=== PATIENT | female | born 1980 | race Caucasian/White ===

== ENCOUNTER 2020-03-28 09:09 | Outpatient (CLI) | payer BC, SELFPAY ==
--- NOTE | ~2020-03-28 | MM_ITS ---
EXAMINATION: MM screening ana BI w katty HISTORY: Screening mammogram TECHNIQUE: Craniocaudal and mediolateral oblique 3-D tomosynthesis images were obtained and synthetic 2-D images were generated. CAD analysis was submitted and interpreted. COMPARISON: 06/04/2016 bilateral diagnostic digital mammogram and complete right breast ultrasound BREAST PARENCHYMAL COMPOSITION: There are scattered areas of fibroglandular density. FINDINGS: There is asymmetry in the posterior mid to upper outer right breast; diagnostic right mammo gram and right breast ultrasound examination are recommended. Otherwise there is no evidence of suspicious mass, calcification, or architectural distortion to sugg est malignancy in either breast. There has been no other suspicious interval change. IMPRESSION: 1. Posterior mid to upper outer right breast asymmetry 2. Diagnostic right mammogram and right breast ultrasound examination are recommended. BI-RADS Category 0: Incomplete: Needs additional imaging evaluation. Reviewed, dictated and finalized at location A. WORKER IMPRESSION: 1. Posterior mid to upper outer right breast asymmetry 2. Diagnostic right mammogram and right breast ultrasound examination are recom mended. BI-RADS Category 0: Incomplete: Needs additional imaging evaluation.
== END 2020-03-28 09:10 | disposition home or self-care (01) ==
LOC: ANHIMG 09:11
PROVIDERS: PCP Internal Medicine; Visit Provider Nurse Practitioner
DX: Z12.31 Encounter for screening mammogram for malignant neoplasm of breast (principal); R92.8 Other abnormal and inconclusive findings on diagnostic imaging of breast
CPT/HCPCS: 77063; 77067

== ENCOUNTER 2020-05-02 12:11 | Outpatient (CLI) | payer BC, SELFPAY ==
--- NOTE | ~2020-05-02 | MM_ITS ---
Corrected Report Added US order to this report. -BJO - EXAMINATION: MM diagnostic mammo unilat RT, US breast RT limited HISTORY: Focal asymmetry of the right breast on screening mammogram TECHNIQUE: Additional 3-D tomosynthesis images of the right breast were performed and synthetic 2-D images were generated. CAD analysis was submitted and interpreted. High resolution limited right breast ultrasound was performed. COMPARISON: 03/28/2020, 06/04/2016 BREAST PARENCHYMAL COMPOSITION: There are scattered areas of fibroglandular density. FINDINGS: MAMMOGRAPHIC FINDINGS: There is persistent focal asymmetry in the posterior third of the outer breast at the 9:00 location 8 cm from the nipple. No suspicious calcification or architectural distortion are identified. ULTRASOUND: There is a 4 mm cyst at the 10:00 location 2 cm from the nipple. A 4 mm cyst is also seen at the 9:00 location 3 cm from the nipple. No definite sonographic correlate is identified for the mammographic finding in question. IMPRESSION: 1. Probably benign right breast focal asymmetry. 2. Recommend 6 month follow-up right diagnostic mammogram and possible ultrasound. BI-RADS category 3, probably benign findings. Reviewed, dictated and finalized at location A. OGRAPHY TECHNICIAN MTDD IMPRESSION: 1. Probably benign right breast focal asymmetry. 2. Recommend 6 month follow-up right diagnostic mammogram and possible ultrasou nd. BI-RADS category 3, probably benign findings.
== END 2020-05-02 12:12 | disposition home or self-care (01) ==
LOC: ANHIMG 12:13
PROVIDERS: PCP Internal Medicine; Visit Provider Obstetrics & Gynecology Gynecology
DX: R92.8 Other abnormal and inconclusive findings on diagnostic imaging of breast (principal)
CPT/HCPCS: 76642; 77065

== ENCOUNTER 2020-06-23 10:56 | Emergency (ER) | payer BC, SELFPAY ==
--- NOTE | 2020-06-23 10:57 | PC.NURSE ---
Pt arrives to ED ambulatory from [facility]. States has been vomiting and has upper abdominal pain and was told she may have appendicitis and to come to the ED. Pt made aware of need to stay npo for triage. Pt also states the last time I was here for this about a year ago, all they did was draw blood, I didn't get any scans or anything . Explained to rule out anything emergent often blood work is done and sometimes scans or ultrasounds are ordered to be more conclusive. Explained that it is at the examining physician's preference.
--- NOTE | 2020-06-23 11:21 | PC.NURSE ---
States medicine received at urgent care is making her feel better and she is no longer vomiting. Skin signs and breathing wnl. Advised of risks including worsening condition, undiagnosed conditions and may result. Verbalized understanding.
== END 2020-06-23 11:21 | disposition left against medical advice (07) ==
LOC: ANHED 11:46
PROVIDERS: PCP Internal Medicine
DX: Z53.21 Procedure and treatment not carried out due to patient leaving prior to being seen by health care provider (principal)
CPT/HCPCS: 99199

== ENCOUNTER → 2020-07-04 13:45 | Outpatient (CLI) | payer BC, SELFPAY ==
--- NOTE | ~2020-07-04 | CT_ITS ---
EXAMINATION: CT abdomen pelvis w con DATE: 07/04/2020 14:18 INDICATION: Epigastric pain TECHNIQUE: Computed tomography (CT) of the abdomen and pelvis was performed with 100 cc Omnipaque 350 intravenous contrast. The dose-length product was 975.78 mGy-cm. Automated exposure control and iter ative reconstruction technique were employed. COMPARISON: None. FINDINGS: Lung bases are unremarkable. Heart size is normal. No pleural or pericardial effusion. No s ignificant vascular abnormality. No lymphadenopathy. The liver, spleen, pancreas, adrenal glands and kidneys are unremarkable. Gallbladder is present. Non obstructive bowel gas pattern. Colonic diverticulosis without evidence for diverticulitis. No free ai r or free fluid. IUD present in the uterus. No acute osseous abnormality. IMPRESSION: 1. No acute abdominal abnormality. Reviewed, dictated and finalized at location A. TING SUPERVISOR
== END ==
PROVIDERS: Visit Provider Clinical Nurse Specialist
DX: R10.84 Generalized abdominal pain (principal)
CPT/HCPCS: 74177; Q9967

== ENCOUNTER → 2020-08-11 01:48 | Outpatient (CLI) | payer BC, SELFPAY ==
[2020-08-11 19:04] LABS: SARS-CoV-2 RNA PCR Negative
== END ==
PROVIDERS: PCP Internal Medicine; Visit Provider Internal Medicine Gastroenterology
DX: Z01.812 Encounter for preprocedural laboratory examination (principal); Z20.822 Contact with and (suspected) exposure to COVID-19
CPT/HCPCS: C9803; U0003; U0005

== ENCOUNTER 2020-08-14 01:55 | Day surgery (SDC) | payer BC, SELFPAY ==
[2020-08-07 09:26] VITALS: BMI 33.3
[2020-08-14 08:09] VITALS: BP 100/63; PULSE 88; RESP 16; TEMP 36.4; O2SAT 98; BMI 34.4
--- NOTE | 2020-08-14 08:18 | WPDANESEPPF ---
Anes - Initial Pre Proc Eval Procedure: Operation Date: 08/14/20 09:00 Proposed Procedures p Colonoscopy - Dane Ortiz MD Date/Time: 08/14/20 08:18 Surgeon: Dane Ortiz MD Pre Op Diagnosis: right lower quadrant pain, loose stools Patient Data Age: 39 Gender: F Height: 5 ft 5 in Weight: 94 kg Last Vital Signs Temp 36.4 C 08/14/20 08:09 Pulse 88 08/14/20 08:09 Resp 16 08/14/20 08:09 BP 100/63 08/14/20 08:09 Pulse Ox 98 08/14/20 08:09 Allergies Allergy/AdvReac Type Severity Reaction Status Date / Time No Known Allergies Allergy Verified 08/14/20 08:07 Home Medications Medication Instructions Recorded Confirmed Type ergocalciferol (vitamin D2) 1,250 50,000 unit PO WEEKLY #8 cap 02/29/20 08/07/20 Rx mcg (50,000 unit) capsule ondansetron 4 mg disintegrating 4 mg PO Q8H PRN #30 tablet 06/26/20 08/07/20 Rx tablet levothyroxine 125 mcg tablet 125 mcg PO DAILY #90 tablet 08/04/20 08/07/20 Rx sod picosulf 10 mg-magnes 3.5 160 ml PO BID #160 ml 08/06/20 Rx gram-citric 12 gram/160 mL oral solution fluticasone propionate 2 spray INTRANASAL DAILY 08/07/20 08/07/20 History levocetirizine 5 mg PO DAILY 08/07/20 08/07/20 History Patient hx anesthesia problems: none Family hx anesthesia problems: none PMFSH Past Medical History Medical History Fibrocystic breast disease Heartburn HPV (human papilloma virus) infection Hypothyroidism Migraine Vitamin D deficiency Family History Family History Mother Patient's mother is in good health Father Acute myocardial infarction Sibling Skin cancer Social History Social History Smoking status: Current some day smoker Tobacco type: cigarettes Second hand tobacco smoke exposure: Yes Additional smoking assessment comments: SMOKES SOCIALLY COUPLE PACKS A MONTH Alcohol intake: current Substance use: never Substance use type: does not use Living arrangements: with family Spiritual care concerns: No Anes - Eval Final PreProcedure Day of Procedure 08/14/20 08:18 Patient weight: obese Heart: regular rate and rhythm Lungs: clear to auscultation Airway: Mallampati scale Neurological: alert and oriented Last oral intake: >/= 8 hours ASA classification: II Emergent: no Anesthetic plan: proceed Anesthesia type and monitoring: general GIVS and standard monitoring Informed Consent: The patient's anesthetic plan and its attendant risks and benefits were discussed with the patient/family/POA. Questions were solicited and answers provided to the satisfaction of the patient/family/POA.
[2020-08-14] MEDS: LACTATED RINGERS 1,000 ML 150 ML IV CONT (08:26)
--- NOTE | 2020-08-14 08:55 | PM.HPGS ---
History of Present Illness History of Present Illness Consent: Risks, benefits, and alternatives have been discussed and questions answered. Patient agrees to proceed with procedure. Chief complaint: right lower quadrant pain, loose stools Narrative: Marsha Jacobs is a 39 year old female With a change in bowel habits accompanied by abdominal pain Review of Systems Review of Systems: All systems reviewed & are unremarkable except as noted in HPI and below PMFSH Past Medical History Medical History Fibrocystic breast disease Heartburn HPV (human papilloma virus) infection Hypothyroidism Migraine Vitamin D deficiency Family History Family History Mother Patient's mother is in good health Father Acute myocardial infarction Sibling Skin cancer Social History Social History Smoking status: Current some day smoker Tobacco type: cigarettes Second hand tobacco smoke exposure: Yes Additional smoking assessment comments: SMOKES SOCIALLY COUPLE PACKS A MONTH Alcohol intake: current Substance use: never Substance use type: does not use Living arrangements: with family Spiritual care concerns: No Meds Home Medications and Allergies Home Medications Medication Instructions Recorded Confirmed Type ergocalciferol (vitamin D2) 1,250 50,000 unit PO WEEKLY #8 cap 02/29/20 08/07/20 Rx mcg (50,000 unit) capsule ondansetron 4 mg disintegrating 4 mg PO Q8H PRN #30 tablet 06/26/20 08/07/20 Rx tablet levothyroxine 125 mcg tablet 125 mcg PO DAILY #90 tablet 08/04/20 08/07/20 Rx sod picosulf 10 mg-magnes 3.5 160 ml PO BID #160 ml 08/06/20 Rx gram-citric 12 gram/160 mL oral solution fluticasone propionate 2 spray INTRANASAL DAILY 08/07/20 08/07/20 History levocetirizine 5 mg PO DAILY 08/07/20 08/07/20 History Allergies Allergy/AdvReac Type Severity Reaction Status Date / Time No Known Allergies Allergy Verified 08/14/20 08:07 Vital Signs Vital Signs - 24 hr 08/14/20 08:09 Temperature 36.4 C Pulse Rate 88 Respiratory Rate 16 Blood Pressure 100/63 Pulse Oximetry 98 Exam Const: General: alert Orientation/consciousness: patient oriented x3 Resp: Auscultation: clear to auscultation bilaterally Cardio: Rhythm: regular rhythm GI: GI Palp: Yes Soft to palpation and No Tenderness to palpation present (GI) Neuro: General: patient oriented x3 Assessment and Plan Assessment and plan (1) Change in bowel habits: Code(s): R19.4 - Change in bowel habit Status: Acute Assessment and Plan: Colonoscopy with possible biopsy or polypectomy or cautery or injection of substances.
[2020-08-14 09:28] VITALS: BP 91/66; PULSE 81; RESP 23; O2SAT 100
[2020-08-14 09:38] VITALS: BP 101/66; PULSE 79; RESP 18; O2SAT 100
[2020-08-14 09:48] VITALS: BP 102/65; PULSE 75; RESP 23; O2SAT 100
== END 2020-08-14 09:59 | disposition home or self-care (01) ==
PROVIDERS: PCP Internal Medicine; Visit Provider Internal Medicine Gastroenterology
PROC: 0DJD8ZZ Inspection of Lower Intestinal Tract, Via Natural or Artificial Opening Endoscopic (ICD-10-PCS; CPT 45378; principal; 2020-08-14 09:00)
DX: R19.4 Change in bowel habit (principal); K57.30 Diverticulosis of large intestine without perforation or abscess without bleeding; D12.3 Benign neoplasm of transverse colon; K63.5 Polyp of colon; E03.9 Hypothyroidism, unspecified; E55.9 Vitamin D deficiency, unspecified; F17.210 Nicotine dependence, cigarettes, uncomplicated; E66.9 Obesity, unspecified; Z68.34 Body mass index [BMI] 34.0-34.9, adult
CPT/HCPCS: 45385; 88305; J2704; J7120

== ENCOUNTER 2020-10-31 11:11 | Outpatient (CLI) | payer BC, SELFPAY ==
--- NOTE | ~2020-10-31 | MMUS_ITS ---
EXAMINATION: MM diagnostic ana RT w katty, US breast RT limited HISTORY: Six-month follow-up for probably benign focal asymmetry of the right breast. TECHNIQUE: Craniocaudal, mediolateral, and mediolateral oblique 3-D tomosynthesis images of the right breast were performed and synthetic 2-D images were generated. CAD analysis was submitted and interp reted. High resolution limited right breast ultrasound was performed. COMPARISON: 05/12/2020, 03/28/2020, 04/03/2017 BREAST PARENCHYMAL COMPOSITION: There are scattered areas of fibroglandular density. FINDINGS: MAMMOGRAPHIC FINDINGS: Focal asymmetry in the posterior third of the upper outer quadrant of the breast is stable. There has been no suspicious interval change. ULTRASOUND: There is no evidence of focal abnormal solid or cystic mass in the vicinity of the mammographic findi ng in question. A 4 mm cyst is noted at the 9:00 location 4 cm from the nipple. IMPRESSION: 1. Stable, probably benign focal asymmetry of the right breast. 2. Recommend 6 month follow-up right diagnostic mammogram and possible ultrasound. BI-RADS category 3, probably benign findings. Reviewed, dictated and finalized at location A. IMPRESSION: 1. Stable, probably benign focal asymmetry of the right breast. 2. Recommend 6 month follow-up right diagnostic mammogram and possible ultrasou nd. BI-RADS category 3, probably benign findings.
== END 2020-10-31 11:12 | disposition home or self-care (01) ==
PROVIDERS: PCP Internal Medicine; Visit Provider Obstetrics & Gynecology Gynecology
DX: R92.8 Other abnormal and inconclusive findings on diagnostic imaging of breast (principal)
CPT/HCPCS: 76642; 77061; 77065; G0279

== ENCOUNTER 2021-05-08 11:26 | Outpatient (CLI) | payer BC, SELFPAY ==
--- NOTE | ~2021-05-08 | MMUS_ITS ---
EXAMINATION: MM diagnostic ana BI w katty, US breast RT limited HISTORY: Follow-up right breast masses TECHNIQUE: Additional 3-D tomosynthesis images of the breasts were performed and synthetic 2-D images were generated. CAD analysis was submitted and interpreted. High resolution Limited right breast ult rasound was performed. COMPARISON: Comparison to multiple prior studies sequentially, with oldest reviewed study dated 06/04. BREAST PARENCHYMAL COMPOSITION: Breast composed of scattered areas of fibroglandular density FINDINGS: MAMMOGRAPHIC FINDINGS: Stable benign-appearing masses in the upper outer quadrant of the right breast posteriorly. The left breast is stable without evidence for malignancy. ULTRASOUND: Limited right breast ultrasound: And 9:00, 4 cm from the nipple there is a 5 mm cyst. No suspicious m asses to suggest malignancy. IMPRESSION: 1. No evidence for malignancy in either breast. Benign findings. 2. Routine yearly screening mammogram and regular clinical breast examination are recommended. BI-RADS Category 2: Benign finding(s). Reviewed, dictated and finalized at location A. IL GREETER IMPRESSION: 1. No evidence for malignancy in either breast. Benign findings. 2. Routine yearly screening mammogram and regular clinical breast examination a re recommended. BI-RADS Category 2: Benign finding(s).
== END 2021-05-08 11:27 | disposition home or self-care (01) ==
PROVIDERS: PCP Internal Medicine; Visit Provider Obstetrics & Gynecology Gynecology
DX: R92.8 Other abnormal and inconclusive findings on diagnostic imaging of breast (principal)
CPT/HCPCS: 76642; 77062; 77066; G0279

== ENCOUNTER 2022-03-17 15:25 | Outpatient (CLI) | payer BC, SELFPAY ==
--- NOTE | ~2022-03-17 | US_ITS ---
EXAMINATION: US pelvic complete w TV DATE: 03/17/2022 16:20 INDICATION: Evaluate IUD Comparison:No prior studies for comparison. TECHNIQUE: Multiple transabdominal and endovaginal sonographic images of the pelvis performed. FINDINGS: The uterus measures 6.8 x 3 x 3.4 cm. The endometrial complex measures 3 mm. There is an IU D in the endometrium. Small amount of fluid in the endometrial complex. The right ovary is not visualized. Left ovary measures 2.2 x 1.3 x 1.6 cm. There is an echogenic focu s in the left ovary measuring 4 mm, likely calcification. There is no free fluid in the pelvis. There are no abnormal masses seen on either side. IMPRESSION: 1. Unremarkable pelvic ultrasound. IUD in expected position. Reviewed, dictated and finalized at location A. OLOGY CT TECHNOLOGIST
== END 2022-03-17 15:26 | disposition home or self-care (01) ==
PROVIDERS: PCP Internal Medicine; Visit Provider Nurse Practitioner
DX: Z30.431 Encounter for routine checking of intrauterine contraceptive device (principal)
CPT/HCPCS: 76830; 76856

== ENCOUNTER 2022-05-28 09:51 | Outpatient (CLI) | payer BC, SELFPAY ==
--- NOTE | ~2022-05-28 | MM_ITS ---
EXAMINATION: MM screening naa BI w katty HISTORY: Screening TECHNIQUE: Craniocaudal and mediolateral oblique 3-D tomosynthesis images were obtained and synthetic 2-D images were generated. CAD analysis was submitted and interpreted. COMPARISON: Comparison to multiple prior studies sequentially, with oldest reviewed study dated 06/04. BREAST PARENCHYMAL COMPOSITION: Breast composed of scattered areas of fibroglandular density FINDINGS: Benign-appearing masses in the upper outer quadrant of the right breast are unchanged. Ther e is no evidence of suspicious mass, calcification, or architectural distortion to suggest malignancy in either breast. There has been no suspicious interval change. IMPRESSION: 1. No mammographic evidence of malignancy. 2. Recommend routine screening mammography in one year. BI-RADS Category 2: Benign finding(s). Reviewed, dictated and finalized at location A. MATIC WASHER MECHANIC
== END 2022-05-28 09:52 | disposition home or self-care (01) ==
PROVIDERS: PCP Internal Medicine; Visit Provider Nurse Practitioner
DX: Z12.31 Encounter for screening mammogram for malignant neoplasm of breast (principal)
CPT/HCPCS: 77063; 77067

== ENCOUNTER 2022-11-27 15:04 | Observation (INO) | payer BC, SELFPAY ==
--- NOTE | ~2022-11-27 | CT_ITS ---
CT of the Abdomen and Pelvis: Indication: Abdominal pain Technique: 2.5 mm axial scans were obtained through the abdomen and pelvis following intravenous adm inistration of 100 cc of Omnipaque 350. Dose reduction technique was used on this scan by utilizing a utomated exposure control and iterative reconstruction technique. The dose-length product (DLP) was 9 07.53 mGy-cm. COMPARISON: 07/04/2020 Findings: Scans through the lung bases are unremarkable. The liver, spleen, pancreas, gallbladder, adrenals and kidneys are within normal limits. No evidence of aortic aneurysm. No lymphadenopathy. No bowel obstruction or bowel wall thickening. Appendix is dilated to 10 mm, with probable appendicul is present. No significant inflammatory changes evident however. No abscess or free air.. Images through the pelvis were performed. Urinary bladder unremarkable. 2 cm right ovarian cyst noted . No ascites. Impression: Mildly dilated appendix with appendicolith present, but no inflammatory change. Findings could possib ly reflect very early acute appendicitis in the appropriate clinical setting. Correlate clinically. Reviewed, dictated and finalized at [facility]. Impression: Mildly dilated appendix with appendicolith present, but no inflammatory change. Findings could possibly reflect very early acute appendicitis in the appropria te clinical setting. Correlate clinically.
[2022-11-27 15:06] VITALS: BP 114/76; PULSE 73; RESP 20; TEMP 36.3; O2SAT 100
[2022-11-27 15:29] LABS: Hematocrit 43.3 % (37.0-47.0); Hemoglobin 14.5 g/dL (12.0-15.0); Mean Corpuscular HGB Conc 33.5 g/dl (32-36); Mean Corpuscular Hemoglobin 30.7 pg (26-34); Mean Corpuscular Volume 91.7 fl (80-100); Mean Platelet Volume 8.9 fl (7.4-10.4); Platelet Count Result 294 k/mm3 (150-375); Red Blood Count 4.72 M/mm3 (4.2-5.4); Red Cell Distribution Width 12.7 % (11.5-14.5); White Blood Count 20.1 K/mm3 (4.5-10.0)
[2022-11-27 15:31] VITALS: BP 114/65; PULSE 71; RESP 15; O2SAT 100
[2022-11-27 15:40] LABS: Alanine Aminotransferase 23 U/L (6-35); Albumin Level 4.3 g/dL (3.5-5.1); Alkaline Phosphatase 77 U/L (38-126); Anion Gap 7 mmol/L (8-16); Aspartate Amino Transferase 26 U/L (14-36); Bilirubin,Total 0.5 mg/dL (0.2-1.3); Blood Urea Nitrogen 15 mg/dL (7-17); Carbon Dioxide 21 mmol/L (22-30); Chloride 107 mmol/L (98-107); Estimated CRCL calculation 88 ml/min; Estimated Glomerular Filt Rate > 60; Glucose 121 mg/dL (65-110); Lipase 112 U/L (23-300); Potassium 3.7 mmol/L (3.4-5.0); Sodium 135 mmol/L (137-145)
[2022-11-27] MEDS: ONDANSETRON INJ 4 MG/2 ML VIAL IV PUSH ×2 (15:41→19:13)
[2022-11-27] MEDS: HYDROmorphone HCL INJ (*CRX) 1 MG/ML SYR 0.5 MG IV PUSH ×2 (15:42→19:16)
--- NOTE | 2022-11-27 15:45 | ED.ABDPAIN ---
HPI - Abdominal Pain General Chief Complaint: Abdominal Pain Stated Complaint: abd pain N/V Time Seen by Provider: 11/27/22 15:13 History of Present Illness HPI narrative: 42-year-old female presented ED for evaluation of epigastric pain with associated nausea and vomiting. Patient reports she had the onset of pain at approximately 10 AM and then had nausea and vomiting at 1 PM. Patient did attempt to take Zofran for nausea control with no significant improvement. Patient does have prior history of gastritis. Patient does drink alcohol and did drink some alcohol recently. Patient denies any prior history of pancreatitis. Patient describes epigastric abdominal pain patient states she is passing stool and passing flatus. Patient denies any blood in her emesis. Related Data Home Medications Medication Instructions Recorded Confirmed fluticasone propionate 50 2 spray intranasal DAILY 08/07/20 07/16/22 mcg/actuation nasal spray,suspension levocetirizine 5 mg tablet 5 mg PO DAILY 08/07/20 07/16/22 Allergies Allergy/AdvReac Type Severity Reaction Status Date / Time No Known Allergies Allergy Verified 11/27/22 15:31 Review of Systems Review of Systems: All systems reviewed & are unremarkable except as noted in HPI and below PMFSH Past Medical History Medical History Fibrocystic breast disease Heartburn HPV (human papilloma virus) infection Hypothyroidism Migraine Vitamin D deficiency Surgical History Surgical History History of placement of ear tubes Third tube placed in left ear 04/2021 Family History Family History (Updated 07/16/22 @ 11:16 by Angie Rojas MA) Mother Patient's mother is in good health Father Acute myocardial infarction Parkinson disease Sibling Skin cancer Social History Social History (Updated 07/16/22 @ 11:19 by Angie Rojas MA) Smoking status: Current some day smoker Tobacco type: cigarettes Second hand tobacco smoke exposure: Yes Additional smoking assessment comments: SMOKES SOCIALLY COUPLE PACKS A MONTH Alcohol intake: current Substance use: never Substance use type: does not use Lack of Transportation: No Lack of Food: Never True Current Housing: I Have Housing Concerned About Future Housing: No Difficulty Paying Gas/Electric Bills: No Difficulty Paying for Meds: No Currently Unemployed: No Education: Associate Degree Difficulty w/ Childcare or Family Care: No Living arrangements: with family Spiritual care concerns: No Exam Narrative: APPEARANCE: Well appearing, no pain, no distress, well-nourished. HEAD: normocephalic, atraumatic. EYES: PERRLA/EOMI, conjunctivae clear. NOSE: Normal no drainage EARS:TMS clear with good light reflex. THROAT: Pharynx clear, no exudate. NECK: Supple. No adenopathy, no masses. RESPIRATORY: Airway patent, respirations nonlabored. Clear to auscultation bilaterally, no rales, rhonchi, wheezing. CARDIOVASCULAR: Regular rate and rhythm without murmurs rubs or gallops. ABDOMINAL: Epigastric tenderness to palpation with mild right lower quadrant tenderness to palpation MUSCULOSKELETAL: Moves all extremities. Strength/ROM intact, No edema, No calf tenderness. NEURO: Alert. Cranial nerves II through XII intact. Grossly intact SKIN: Warm, dry. Normal Color Course Course Emergency Course: 42-year-old female presented ED for evaluation of epigastric pain with associated nausea and vomiting. Patient did require multiple doses of Dilaudid, Zofran and IV Reglan for pain and nausea control. Patient did have a elevated leukocytosis of 20,000. Patient CT showed possible early appendicitis. On reexamination patient reports that her epigastric pain is improved but she does still have tenderness to palpation. Patient did have some mild right lower quadrant tendernes
[2022-11-27] MEDS: BELLADONNA ALK/PHENOB ELIX 10 ML, MAG HYDROX/ALUMINUM HYD/SIMETH 30 ML, LIDOCAINE HCL 2... PO (15:50)
[2022-11-27] MEDS: PANTOPRAZOLE SODIUM IV 40 MG VIAL IV PUSH (15:53)
[2022-11-27 16:07] LABS: Band Neutrophils Percent 2 % (0-6); Lymphocytes Absolute Manual 2.61 K/mm3 (1.1-4.5); Monocytes Percent Manual 8 % (3-9); Neutrophils Absolute Manual 15.87 K/mm3 (1.7-7.2); Neutrophils Percent Manual 77 % (46-73); Platelet Estimate Adequate (Adequate); Schistocytes None Seen (NORMAL); Total Cells Counted 100
[2022-11-27] MEDS: METOCLOPRAMIDE HCL INJ 10 MG/2 ML VIAL IV PUSH (16:52)
[2022-11-27 16:54] VITALS: BP 112/52; PULSE 76; RESP 23; O2SAT 100
--- NOTE | 2022-11-27 17:05 | PC.NURSE ---
Pt to CT scan via stretcher at this time.
[2022-11-27] MEDS: HYDROmorphone HCL INJ (*CRX) 1 MG/ML SYR IV PUSH (17:13)
[2022-11-27 17:42] VITALS: BP 100/69; PULSE 84; RESP 16; O2SAT 98
[2022-11-27] MEDS: SODIUM CHLORIDE 0.9% IV 1,000 ML 999 ML IV CONT (17:49)
[2022-11-27 18:37] LABS: Add Urine Microscopic? YES; Appearance Urine Clear (Clear); Bacteria Urine None Seen /hpf; Bilirubin Urine Negative (Negative); Blood Urine Negative (Negative); Color Urine Yellow (Yellow); Glucose Urine UA Negative (Negative); Hyaline Casts Urine Present /lpf; Ketones Urine 3+ mg/dL (Negative); Leukocyte Esterase Ur Negative LEU/UL (Negative); Nitrate Urine Negative (Negative); Non Pathogenic Casts 0-2; Protein Urine Trace mg/dL (Negative); Specific Grav Ur 1.098 (1.001-1.035); Squamous Epithelial Cell Urine Occasional /hpf (Few); WBC Urine 0-5 /hpf; pH Urine 8.5 (5.0-9.0)
[2022-11-27 18:48] VITALS: BP 128/83; PULSE 75; RESP 18; O2SAT 100
--- NOTE | 2022-11-27 19:00 | ADMGEN ---
This patient, Marsha Jacobs, was admitted to 2 Medical Room 242-01. Patient/family oriented to hospital policies and general routines including ID bracelet, bed and alarms, visiting hours, pain management, procedures, bathroom and other care routines, personal items, smoking policy, room service/diet, and visiting hours. Information on how to activate the Rapid Response Team has been discussed. Patient/Family are encouraged to report perceived risks to care and to ask questions if they do not understand what they are told or what they should do.
[2022-11-27 19:27] VITALS: BP 108/70; PULSE 86; RESP 16; TEMP 36.3; O2SAT 100; BMI 34.7
[2022-11-27] MEDS: PIPERACILLN/TAZ 3.375GM/NS50ML 3.375 GM/50 ML BAG IVPB (21:30)
[2022-11-27] MEDS: SODIUM CHLORIDE 0.9% IV 1,000 ML 125 ML IV CONT (21:30)
[2022-11-28] VITALS (10 sets, daily range): BP systolic 94–105; BP diastolic 53–75; PULSE 76–107; RESP 16–25; TEMP 36.2–36.9; O2SAT 96–100
[2022-11-28] MEDS: SODIUM CHLORIDE 0.9% IV 1,000 ML 125 ML IV CONT (07:00)
--- NOTE | 2022-11-28 08:40 | PM.IMHP ---
H&P: HPI History of Present Illness Date/Time: 11/28/22 08:40 Chief Complaint: Epigastric and right lower quadrant abdominal pain Narrative: This is a 42-year-old woman who presented to the emergency department with mostly epigastric abdominal pain. She had been experiencing pain followed by nausea and vomiting. She states that she has probably vomited about 20 times. She is no longer nauseated and the epigastric pain is somewhat better but she is complaining of pain in her lower abdomen and particularly on the right side. In the emergency department she was noted to have an elevated white blood count and CT showed a dilated appendix with appendicolith but no surrounding inflammation. The patient states she has had 2 or 3 episodes like this in the past but they have improved without needing to be admitted. She denies any changes in bowel habits. She denies any fevers. She was admitted for observation and now that she has been observed over night the pain does appear to be more localized to the right lower quadrant. Review of Systems Review of Systems: All systems reviewed & are unremarkable except as noted in HPI and below Eyes: Eyes: Denies change in vision ENT: Denies hearing loss, Denies neck pain and Denies sore throat Cardiovascular: Cardiovascular: Denies chest pain and Denies dyspnea Respiratory: Respiratory: Denies cough, Denies dyspnea and Denies wheezing Gastrointestinal: Gastrointestinal: Reports as per HPI Genitourinary: Genitourinary: Denies hematuria and Denies dysuria Musculoskeletal: Musculoskeletal: Denies arthralgias, Denies joint swelling and Denies neck pain Allergic/Immunologic: Allergic/Immunologic: Denies wheezing PMFSH Past Medical History Medical History Fibrocystic breast disease Heartburn HPV (human papilloma virus) infection Hypothyroidism Migraine Vitamin D deficiency Surgical History Surgical History History of placement of ear tubes Third tube placed in left ear 04/2021 Family History Family History (Updated 11/27/22 @ 19:29 by Evangelist Burton RN) Mother Patient's mother is in good health Father Acute myocardial infarction Parkinson disease Sibling Skin cancer Sibling Skin cancer Social History Social History (Updated 07/16/22 @ 11:19 by Angie Rojas MA) Smoking packs per day: 0.1 Smoking cigarettes per day: 2.0 Years smoked: 30 Smoking pack-years: 3.00 Smoking status: Current some day smoker Tobacco type: cigarettes Second hand tobacco smoke exposure: Yes Additional smoking assessment comments: SMOKES SOCIALLY COUPLE PACKS A MONTH Alcohol intake: current Drinks per week: 1 Substance use: never Substance use type: does not use Lack of Transportation: No Lack of Food: Never True Current Housing: I Have Housing Concerned About Future Housing: No Difficulty Paying Gas/Electric Bills: No Difficulty Paying for Meds: No Currently Unemployed: No Education: Associate Degree Difficulty w/ Childcare or Family Care: No Living arrangements: with family Spiritual care concerns: Yes Meds Home Medications and Allergies Home Medications Medication Instructions Recorded Confirmed Type fluticasone propionate 50 2 spray intranasal DAILY 08/07/20 11/27/22 History mcg/actuation nasal spray,suspension levocetirizine 5 mg tablet 5 mg PO DAILY 08/07/20 11/27/22 History levothyroxine 125 mcg tablet 125 mcg PO DAILY #90 tabs 07/16/22 11/27/22 Rx ergocalciferol (vitamin D2) 1,250 See Rx Instructions .Route 08/31/22 11/27/22 Rx mcg (50,000 unit) capsule .COMPLEX #12 caps Allergies Allergy/AdvReac Type Severity Reaction Status Date / Time No Known Allergies Allergy Verified 11/27/22 19:26 Vital Signs Vital Signs - 24 hr 11/27/22 15:06 11/27/22 15:31 11/27/22 16:54 Tem
--- NOTE | 2022-11-28 08:46 | WPDHPUPDATE1 ---
History and Physical Update Update Date/Time: 11/28/22 08:46 History and Physical has been reviewed, including an updated exam of the patient. There are NO changes in the patient's condition. Risks, benefits, and alternatives have been discussed and questions answered. Patient agrees to proceed with procedure.
[2022-11-28] MEDS: PIPERACILLN/TAZ 3.375GM/NS50ML 3.375 GM/50 ML BAG IVPB ×2 (09:19→15:18)
--- NOTE | 2022-11-28 09:50 | PC.NURSE ---
To OR per bed , IV right wrist, LAC. Report given to Freddy RAMIREZ.
--- NOTE | 2022-11-28 09:59 | WPDANESEPPF ---
Anes - Initial Pre Proc Eval Procedure: Operation Date: 11/28/22 10:00 Proposed Procedures p Laparoscopic Appendectomy - Tereso Pugh DO Date/Time: 11/28/22 09:59 Surgeon: Tereso Pugh DO Pre Op Diagnosis: Abdominal Pain,Nausea,Vomiting,Leukocytosis Patient Data Age: 42 Gender: F Height: 1.65 m Weight: 94.7 kg Last Vital Signs Temp 36.9 C 11/28/22 04:37 Pulse 76 11/28/22 04:37 Resp 16 11/28/22 04:37 BP 100/56 L 11/28/22 04:37 Pulse Ox 99 11/28/22 04:37 O2 Del Method Room Air 11/27/22 15:06 Allergies Allergy/AdvReac Type Severity Reaction Status Date / Time No Known Allergies Allergy Verified 11/27/22 19:26 Home Medications Medication Instructions Recorded Confirmed Type fluticasone propionate 50 2 spray intranasal DAILY 08/07/20 11/27/22 History mcg/actuation nasal spray,suspension levocetirizine 5 mg tablet 5 mg PO DAILY 08/07/20 11/27/22 History levothyroxine 125 mcg tablet 125 mcg PO DAILY #90 tabs 07/16/22 11/27/22 Rx ergocalciferol (vitamin D2) 1,250 See Rx Instructions .Route 08/31/22 11/27/22 Rx mcg (50,000 unit) capsule .COMPLEX #12 caps Laboratory Tests 11/27/22 11/27/22 15:24 18:00 WBC 20.1 H K/mm3 (4.5-10.0) RBC 4.72 M/mm3 (4.2-5.4) Hgb 14.5 g/dL (12.0-15.0) Hct 43.3 % (37.0-47.0) MCV 91.7 fl (80-100) MCH 30.7 pg (26-34) MCHC 33.5 g/dl (32-36) RDW 12.7 % (11.5-14.5) Plt Count 294 k/mm3 (150-375) MPV 8.9 fl (7.4-10.4) Immature Gran % (Auto) Not Reportable Neut % (Auto) Not Reportable Lymph % (Auto) Not Reportable Christian % (Auto) Not Reportable Eos % (Auto) Not Reportable Baso % (Auto) Not Reportable Lymph # (Auto) Not Reportable Christian # (Auto) Not Reportable Eos # (Auto) Not Reportable Baso # (Auto) Not Reportable Abs Immat Gran (auto) Not Reportable Absolute Neuts (auto) Not Reportable Absolute Nucleated RBC Not Reportable Total Counted 100 Neutrophils % (Manual) 77 H % (46-73) Band Neutrophils % 2 % (0-6) Lymphocytes % (Manual) 13.0 L % (18-44) Monocytes % (Manual) 8 % (3-9) Nucleated RBC % Not Reportable Abs Neuts (Manual) 15.87 H K/mm3 (1.7-7.2) Abs Lymphs (Manual) 2.61 K/mm3 (1.1-4.5) Abs Monocytes (Manual) 1.60 H K/mm3 (0.1-0.90) Platelet Estimate Adequate (Adequate) Schistocytes None seen (NORMAL) Sodium 135 L mmol/L (137-145) Potassium 3.7 mmol/L (3.4-5.0) Chloride 107 mmol/L (98-107) Carbon Dioxide 21 L mmol/L (22-30) Anion Gap 7 L mmol/L (8-16) BUN 15 mg/dL (7-17) Creatinine 0.80 mg/dL (0.7-1.0) Estim Creat Clear Calc 88 ml/min Estimated GFR > 60 (59 - ) Glucose 121 H mg/dL (65-110) Calcium 9.0 mg/dL (8.4-10.2) Total Bilirubin 0.5 mg/dL (0.2-1.3) AST 26 U/L (14-36) ALT 23 U/L (6-35) Alkaline Phosphatase 77 U/L (38-126) Total Protein 8.0 g/dL (6.3-8.2) Albumin 4.3 g/dL (3.5-5.1) Lipase 112 U/L (23-300) Urine Color Yellow (Yellow) Urine Appearance Clear (Clear) Urine pH 8.5 (5.0-9.0) Ur Specific [place] 1.098 H (1.001-1.035) Urine Protein Trace mg/dL (Negative) Urine Glucose (UA) Negative mg/dL (Negative) Urine Ketones 3+ H mg/dL (Negative) Ur Blood (Man) Negative (Negative) Urine Nitrate Negative (Negative) Urine Bilirubin Negative (Negative) Urine Urobilinogen 1.0 mg/dL (<2.0) Leukocyte Esterase Rfl Negative KYLE/UL (Negative) Urine RBC 6-10 H /hpf (0-2) Urine WBC 0-5 /hpf Ur Squamous Epith Cells Occasional /hpf (Few) Uri
[2022-11-28] MEDS: BUPIVACAINE/EPINEPHRINE 0.5% 10 ML VIAL 30 ML INFILTRATE (10:26)
[2022-11-28] MEDS: LACTATED RINGERS 1,000 ML 30 ML IV CONT (10:54)
--- NOTE | 2022-11-28 11:02 | W.PM.PROC2 ---
Procedure Note - Detailed Date of Procedure 11/28/22 Pre-op Diagnosis Acute appendicitis Post-op Diagnosis Same (Acute appendicitis and right ovarian cyst) Procedure Performed Laparoscopic appendectomy Surgeon Tereso Pugh, DO Anesthesia General and Local (0.5% bupivicaine with epinephrine) Indications This is a 42-year-old woman who presented to the emergency department yesterday with epigastric abdominal pain. She was experiencing violent nausea and vomiting as well. CT the emergency department showed evidence of a slightly dilated appendix but no surrounding inflammation. [place] [address]. She was admitted for further observation. This morning her pain was more localized to the right lower quadrant. Her symptoms seemed consistent with acute appendicitis. Discussions were made with the patient about treatment options and decision was made to proceed with laparoscopic appendectomy, possible open. Findings Laparoscopic appendectomy was performed. The appendix did appear dilated and indurated. There did not appear to be any evidence of perforation or abscess. The base of the appendix appeared healthy and viable. The appendix was removed and sent to the lab for pathology. Patient did have evidence of a small uncomplicated right ovarian cyst, but no other significant abnormalities were noted. Description of Procedure Procedure as well as risks, benefits, and alternatives were explained to the patient. The patient agreed to proceed. Written consent was obtained and placed in chart prior to procedure. The patient was brought back to surgical suite. She was placed supine on operating table. Time-out was done to confirm the patient and procedure. The patient was then intubated by the Anesthesia Department. Her abdomen was prepped and draped in sterile fashion using chlorhexidine prep. A 5 mm incision was made just to the left of the patient's umbilicus and a 5 mm Optiview trocar was advanced through the abdominal layers under direct visualization. Once inside the peritoneal cavity, carbon dioxide insufflation was used to create a pneumoperitoneum. The camera was inserted and the abdomen was inspected. No immediate abnormalities were identified. The patient was then placed in slight Trendelenburg position and rotated to the left. A 5 mm incision was made in the suprapubic region in midline and a 5 mm trocar was inserted under direct visualization. A 12 mm incision was made in the left lower quadrant and a 12 mm trocar was inserted under direct visualization. The right lower quadrant was carefully inspected. The cecum was identified and then this was traced back to the appendix. The appendix was identified and grasped at the mesoappendix and lifted anteriorly. Careful blunt dissection was carried out at the base of the appendix through the mesoappendix using a [place] grasper. An Endo-DIEGO 45 mm blue load stapler was then advanced across the base of the appendix and clamped and fired. A white reload was then clamped across the mesoappendix and fired. This freed up our appendix completely. It was then placed in an EndoCatch bag and removed through the left lower quadrant port. The staple lines were then inspected. Hemostasis appeared adequate and the staple lines appeared secure. The area was then irrigated with sterile saline. The pelvis was then carefully inspected and irrigated with sterile saline as well and the remainder of the abdomen was carefully inspected. The patient was then flattened out in bed. One final inspection was made around the abdominal cavity and no other abnormalities were seen. The left lower quadrant port was removed and a Anup-Nabeel cone was used to approximate the fascia with an 0 Vicryl simple interrupted suture. The remaining ports were then removed under direct visualization. The camera was removed and the pneumoperitoneum was released. 0.5% bupivacaine with epinephrine was infiltrated lo
--- NOTE | 2022-11-28 11:20 | PM.DS ---
DS: Admitting Diagnosis Discharge Date 11/28/2022 Admitting Diagnosis Epigastric and right lower quadrant abdominal pain, abnormal CT abdomen DS: Discharge Diagnosis Discharge Diagnosis (1) Acute appendicitis with localized peritonitis, without gangrene or abscess: Qualifiers: Appendicitis perforation presence: unspecified whether perforation present Qualified Code(s): K35.30 - Acute appendicitis with localized peritonitis, without perforation or gangrene Code(s): K35.30 - Acute appendicitis with localized peritonitis, without perforation or gangrene Status: Acute (2) Tobacco abuse: Code(s): Z72.0 - Tobacco use Status: Acute (3) Hypothyroidism: Qualifiers: Hypothyroidism type: unspecified Qualified Code(s): E03.9 - Hypothyroidism, unspecified Code(s): E03.9 - Hypothyroidism, unspecified Status: Acute DS: Summary Hospital Course Reason for hospitalization: Possible appendicitis Hospital Course: This is a 42-year-old woman who presented to the emergency department on 11/27/2022 with epigastric pain with nausea and vomiting. She was noted to have an elevated white blood count at 20,[address] showed a dilated appendix without surrounding inflammation. She was having some mild right lower quadrant tenderness to palpation. She was placed in the hospital for observation. She was started on Zosyn in the emergency department. On 11/28/2022 the pain did appear like it was more localized to the right lower quadrant. She had no other significant abdominal exam findings. Discussions were made with the patient to that this appeared likely to be appendicitis and decision was made to proceed with laparoscopic appendectomy. She was returned to the surgical floor postoperatively. Surgery was uncomplicated. Her diet and activity were advanced as tolerated. She was discharged home once her pain was controlled, vitals remained stable, she was tolerating a regular diet, and she was ambulating in the halls. Status at Discharge Functional status at discharge: independent ambulation Overall status at discharge: patient is progressing back to baseline Time Spent with Patient Time attestation: Total time spent providing and/or coordinating discharge services: Time spent: Less than 30 minutes Exam Const: General: comfortable and no acute distress Resp: Effort & Inspection: normal respiratory effort Auscultation: clear to auscultation bilaterally Cardio: Rate: regular rate Rhythm: regular rhythm Heart sounds: S1 normal heart sound present and S2 normal heart sound present GI: Inspection: non-distended GI Palp: Yes Soft to palpation DS: Data Data Completed and Pending Pending studies at discharge: Pending at discharge 11/28/22 10:20 Surgical [PTH] Routine Labs on day of discharge: Labs from last 24 hours 11/27/22 11/27/22 18:00 15:24 WBC 20.1 H RBC 4.72 Hgb 14.5 Hct 43.3 MCV 91.7 MCH 30.7 MCHC 33.5 RDW 12.7 Plt Count 294 MPV 8.9 Immature Gran % (Auto) Not Reportable Neut % (Auto) Not Reportable Lymph % (Auto) Not Reportable [place] % (Auto) Not Reportable Eos % (Auto) Not Reportable Baso % (Auto) Not Reportable Lymph # (Auto) Not Reportable [place] # (Auto) Not Reportable Eos # (Auto) Not Reportable Baso # (Auto) Not Reportable Abs Immat Gran (auto) Not Reportable Absolute Neuts (auto) Not Reportable Absolute Nucleated RBC Not Reportable Total Counted 100 Neutrophils % (Manual) 77 H Band Neutrophils % 2 Lymphocytes % (Manual) 13.0 L Monocytes % (Manual) 8 Nucleated RBC % Not Reportable Abs Neuts (Manual) 15.87 H Abs Lymphs (Manual) 2.61 Abs Monocytes (Manual) 1.60 H Platelet Estimate Adequate Schistocytes None seen Sodium 135 L Potassium 3.7 Chloride 107 Carbon Dioxide 21 L Anion Gap 7 L BUN 15 Creatinine 0.80 Estim Creat Clear Calc 88 Estimated GFR > 60 G
--- NOTE | 2022-11-28 11:55 | PC.NURSE ---
Returned from OR per bed. Report received from Yovani RAMIREZ.
[2022-11-28] MEDS: IBUPROFEN 600 MG TABLET PO (12:22)
--- NOTE | 2022-11-28 15:13 | PC.NURSE ---
pt tolerated clear liquid diet, then ate some pudding tolerated no n/v will advance to regular for dinner if tolerates will d/c after eating. Pain controlled plans to walk after dinner
[2022-11-28] MEDS: HYDROcodone/acetaminophen (*CRX) 5-325 MG TABLET 1 TAB PO (17:40)
== END 2022-11-28 18:38 | disposition home or self-care (01) ==
LOC: ANHED 18:04 → ANH2MED 18:32
PROVIDERS: Admitting Provider Surgery; Emergency Provider Emergency Medicine; PCP Internal Medicine; Visit Provider Surgery
PROC: 0DTJ4ZZ Resection of Appendix, Percutaneous Endoscopic Approach (ICD-10-PCS; CPT 44970; principal; 2022-11-28 10:00)
DX: K35.80 Unspecified acute appendicitis (principal); N83.201 Unspecified ovarian cyst, right side; D72.829 Elevated white blood cell count, unspecified; E87.1 Hypo-osmolality and hyponatremia; R73.9 Hyperglycemia, unspecified; N60.19 Diffuse cystic mastopathy of unspecified breast; E03.9 Hypothyroidism, unspecified; R12 Heartburn; E55.9 Vitamin D deficiency, unspecified; A63.0 Anogenital (venereal) warts; E66.9 Obesity, unspecified; Z68.34 Body mass index [BMI] 34.0-34.9, adult; F17.210 Nicotine dependence, cigarettes, uncomplicated; F10.90 Alcohol use, unspecified, uncomplicated; G43.909 Migraine, unspecified, not intractable, without status migrainosus; Z79.899 Other long term (current) drug therapy
CPT/HCPCS: 44970; 36415; 74177; 80053; 81001; 81025; 83690; 85025; 87040; 88304; 96361; 96374; 96375; 96376; 99285; A9270; C9113; G0378; J1100; J1170; J1200; J2250; J2405; J2543; J2704; J2765; J3010; J7030; J7120; Q9967

== ENCOUNTER 2023-04-08 13:41 | Outpatient (CLI) | payer BC, SELFPAY ==
--- NOTE | ~2023-04-08 | US_ITS ---
EXAMINATION: US pelvic complete w TV DATE: 04/08/2023 14:41 INDICATION: Ovarian cyst TECHNIQUE: Multiple transabdominal and endovaginal sonographic images of the pelvis were obtained. COMPARISON: 03/17/2022 FINDINGS: The uterus measures 8.4 x 3.4 x 4.4 cm. The endometrial complex measures 5 mm. The right ov mindy is not visualized however no right adnexal abnormality is seen. The left ovary measures 2.8 x 1.8 x 1.7 cm. There is normal vascular flow in the left ovary. There is no free fluid in the pelvis. The re has been interval removal of the IUD. IMPRESSION: 1. No ovarian cyst identified. Reviewed, dictated and finalized at location B. STMENT BANKING ANALYST
== END 2023-04-08 13:42 | disposition home or self-care (01) ==
LOC: ANHIMG 13:42
PROVIDERS: PCP Internal Medicine; Visit Provider Nurse Practitioner
DX: N83.201 Unspecified ovarian cyst, right side (principal)
CPT/HCPCS: 76830; 76856

== ENCOUNTER 2023-06-10 14:20 | Outpatient (CLI) | payer BC, SELFPAY ==
--- NOTE | ~2023-06-10 | MM_ITS ---
EXAMINATION: MM screening [facility] BI w katty HISTORY: Screening mammogram TECHNIQUE: Craniocaudal and mediolateral oblique 3-D tomosynthesis images were obtained and synthetic 2-D images were generated. CAD analysis was submitted and interpreted. COMPARISON: 05/28/2022, 05/08/2021, 10/31/2020, 05/02/2020, 03/28/2020 BREAST PARENCHYMAL COMPOSITION: There are scattered areas of fibroglandular density. FINDINGS: A chronic focal asymmetry of the outer right breast is stable and consistent with a benign finding. No suspicious mass, calcification, or architectural distortion are identified in either [address] to suggest malignancy. There has been no suspicious interval change. IMPRESSION: 1. No mammographic evidence of malignancy. 2. Recommend routine screening mammography in one year. BI-RADS Category 2: Benign finding(s). Reviewed, dictated and finalized at location A. NEER AUTOMATED EQUIPMENT
== END 2023-06-10 14:21 | disposition home or self-care (01) ==
LOC: ANHIMG 14:26
PROVIDERS: PCP Internal Medicine; Visit Provider Nurse Practitioner
DX: Z12.31 Encounter for screening mammogram for malignant neoplasm of breast (principal)
CPT/HCPCS: 77063; 77067

== ENCOUNTER 2024-02-03 09:03 | Outpatient (CLI) | payer BC, SELFPAY ==
--- NOTE | ~2024-02-03 | XR_ITS ---
EXAMINATION: XR hand BI arthritis min 3V DATE: 02/03/2024 09:41 INDICATION: Pain in both hands. TECHNIQUE: 4 views of right hand and 4 views of left hand on a total of 7 radiographs were obtained. COMPARISON: None. FINDINGS: RIGHT HAND: Alignment is normal. No fracture. Joint spaces are normal. LEFT HAND: Alignment is normal. No fracture. There is mild osteoarthritis of third metacarpophalangea l joint and fourth distal interphalangeal joint. IMPRESSION: 1. Mild polyarticular osteoarthritis. Reviewed, dictated and finalized at location A.
== END 2024-02-03 09:04 | disposition home or self-care (01) ==
LOC: MICIMG 09:04
PROVIDERS: PCP Internal Medicine; Visit Provider Clinical Nurse Specialist
DX: M19.041 Primary osteoarthritis, right hand (principal); M19.042 Primary osteoarthritis, left hand
CPT/HCPCS: 73130

== ENCOUNTER 2024-09-07 09:36 | Outpatient (CLI) | payer BC, SELFPAY ==
--- NOTE | ~2024-09-07 | MM_ITS ---
EXAMINATION: MM screening ana BI w katty HISTORY: Screening TECHNIQUE: Craniocaudal and mediolateral oblique 3-D tomosynthesis images were obtained and synthetic 2-D images were generated. CAD analysis was submitted and interpreted. COMPARISON: Comparison to multiple prior studies sequentially, with oldest reviewed study dated 07/2019. BREAST PARENCHYMAL COMPOSITION: Not dense: There are scattered areas of fibroglandular density. FINDINGS: The right breast is stable without evidence for malignancy there is a new mass in the upper outer quadrant of the left breast with associated punctate marginal calcifications. IMPRESSION: 1. New left breast mass, upper outer quadrant, posterior third. 2. Additional mammographic views and possible breast ultrasound are recommended. BI-RADS Category 0: Incomplete: Needs additional imaging evaluation. Reviewed, dictated and finalized at location A. IMPRESSION: 1. New left breast mass, upper outer quadrant, posterior third. 2. Additional mammographic views and possible breast ultrasound are recommended . BI-RADS Category 0: Incomplete: Needs additional imaging evaluation.
--- OUTSIDE RECORDS SUMMARY | 2024-09-07 09:41 | XMS_ITS | Clinical Summary ---
Author Organization [facility] Address [address] [place] [address] Care Team Providers Care It Business Process Architect Name Role Phone Patricia Ruffin DEEP FRYER ASSEMBLER-CLINICAL ADVISOR Primary Care Provider [phone] Josesito Sanches DO Unavailable Source Comments [facility],non-owned Affiliates and Associated Physician Practices is amultiple site organization consisting of ambulatory clinics and hospital sitesin [place], [place], [place] and [place]. This disclosure is being madepursuant to the Care Everywhere program and may not contain all information available regarding this patient. Last updated 18.[facility] Mirego Allergies No known active allergies Medications * Be aware that medications may not be up to date on this document. Alwaysverify current medications with the patient. vitamin D, ergocalciferol, (Drisdol) 1.25 MG (44340 UT) capsule Take 1 (one) capsule by mouth 01/26/2024 Active levocetirizine (Xyzal) 5 MG tablet 04/25/2021 Active levothyroxine (Synthroid) 125 MCG tablet 04/25/2021 Active fluticasone propionate (Flonase) 50 MCG/ACT nasal spray [place] 2 (two) sprays into each nostril Active Active Problems No known active problems Social History Tobacco Use Types Packs/Day Years Used Date Smoking Tobacco: Some Days Cigarettes Smokeless Tobacco: Never Tobacco Cessation:Ready to Q uit: Not Asked; Counseling Given: Not Answered Alcohol Use Standard Drinks/Week Comments Yes 2 (1 standard drink = 0.6 oz pur e alcohol) Comments No Sex and Gender Information Value Date Recorded Sex Assigned at Female 02/14/2024 6:22 PM CDT 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 Gender Identity Female 02/14/2024 6:22 PM CDT Sexual Orientation Straight 02/14/2024 6: 22 PM CDT Last Filed Vital Signs Vital Sign Reading Time Taken Comments Blood Pressure 96/60 02/16/2024 8:43 AM CDT Pulse 81 02/16/2024 8:43 AM CDT Temperature 36.1 C (97 F) 02/16/2024 8:43 AM CDT Respiratory Rate 16 02/16/2024 8:43 AM CDT Oxygen Saturation 99% 02/16/2024 8:43 AM CDT Inhaled Oxygen Concentration - - Weight 83 kg (183 lb) 02/16/2024 8:43 AM CDT Height 165.1 cm (5' 5 ) 02/16/2024 8:43 AM CDT Body Mass Index 30.45 02/16/2024 8:43 AM CDT Plan of Treatment Health Maintenance Due Date Last Done Comments MAMMOGRAM 1979 PAP SMEAR 1979 HIV SCREENING 11/19/1994 HEPATITIS C SCREENING 11/15/1997 DTAP/TDAP/TD VACCINES (1 - Tdap) 11/19/1998 HEPATITIS B VACCINE (1 of 3 - 19+ 3-dose series) 11/19/1998 PNEUMOCOCCAL VACCINE (1 of 2 - PCV) 11/19/1998 COVID-19 VACCINE ( - 2023-2 5 season) 2023 SCREENING FOR DIABETES 02/16/2024 DEPRESSION SCREENING 04/25/2024 INFLUENZA VACCINE (Season Ended) 2024 LIPID TESTING 01/20/2029 01/21/2024 ZOSTER VACCINE (1 of 2) 11/19/2029 HIB VACCINE Aged Out No longer eligi ble based on patient's age to complete this topic HPV VACCINE Aged Out No longer eligi ble based on patient's age to complete this topic MENINGOCOCCAL (Group B) VACC INE SHARED DECISION-MAKING Aged Out No longer eligibl e based on patient's age to complete this topic MENINGOCOCCAL GROUPS A/C/Y/W VACCINE Aged Out No longer eligible b ased on patient's age to complete this topic Procedures Procedure Name Priority Date/Time Associated Diagnosis Comments LIPID PROFILE Routine 01/21/2024 12:18 PM CDT from Last 3 Months or Most Recently Relevant to Health Maintenance Results * LIPID PROFILE (01/21/2024 12:18 PM CDT) Blood BLOOD SPECIMEN / Unknown us Scanned Document LAB - CHEMISTRY ORDERABLES Ernestine l Result from Last 3 Months or Most Recently Relevant to Health Maintenance Insurance ANTHEM ANTHEM Care Teams It Business Process Architect Relationship Specialty Start Date End Date Patricia Ruffin APRN-CLINICAL ADVISOR [address] [place], [place] [id number] PCP - General Certified Clinical Nurse Specialist 02/06/24 Josesito Sanches DO [address] [id number] Plant Health Care Technician Rheumatology 02/07/24
--- OUTSIDE RECORDS SUMMARY | 2024-09-07 09:41 | XMS_ITS | Clinical Summary ---
Author Organization [facility] Address [facility] [place] [address] Care Team Providers Care Loan Service Officer Name Role Phone Unavailable Primary Care Provider Unavailabl e Allergies No known active allergies Medications levothyroxine 100 MCG tablet Take 1 tablet by mouth daily. 2 05/13/2017 Active vitamin D2, ergocalciferol, 8[address] UNITS capsule Take 1 capsule by mouth weekly. 3 05/13/2017 Active hydrocodone-maurisio taminophen (NORCO) 5-325 MG tablet Take 1-2 tablets by mouth every 4 (four) hours as needed for Pain. 30 tablet 06/23/2017 Active Family History Medical History Relation Comments Heart Disease Father CABG Cancer Sister skin CA Relation Status Comments Father Sister Social History Tobacco Use Types Packs/Day Years Used Date Smoking Tobacco: Some Days Cigarettes Smokeless Tobacco: Never Comments:1-2 packs/monthly Alcohol Use Standard Drinks/Week Comments Yes 0 (1 standard drink = 0.6 oz pur e alcohol) 4 drinks/weekly Comments Unknown Sex and Gender Information Value Date Recorded Sex Assigned at Not on file Legal Sex Female 10:38 AM HONING JOB SETTER Gender Identity Not on file Sexual Orientation Not on file Last Filed Vital Signs Vital Sign Reading Time Taken Comments Blood Pressure 115/72 06/23/2017 2:41 PM HONING JOB SETTER Pulse 79 06/23/2017 2:41 PM HONING JOB SETTER Temperature 36.7 C (98 F) 06/23/2017 2:41 PM HONING JOB SETTER Respiratory Rate 16 06/23/2017 2:41 PM HONING JOB SETTER Oxygen Saturation 100% 06/23/2017 2:41 PM HONING JOB SETTER Inhaled Oxygen Concentration - - Weight 81.5 kg (179 lb 10.8 oz) 018 12:16 PM HONING JOB SETTER Height 165.1 cm (5' 5 ) 06/23/2017 12:1 6 PM HONING JOB SETTER Body Mass Index 29.9 06/23/2017 12:16 PM HONING JOB SETTER Plan of Treatment Health Maintenance Due Date Last Done Comments Cervical Cancer Screening Pa p Smear (Age 30 to 64) Every 3 Years 1979 Annual Physical 11/19/1982 Hepatitis C 11/19/1997 DTaP, Tdap and Td Vaccines ( 1 - Tdap) 11/19/1998 Hepatitis B Vaccines (1 of 3 - 19+ 3-dose series) 11/19/1998 Pneumococcal Vaccine: Pediat rics (0 to 5 Years) and At-Risk Patients (6 to 49 Years) (1 of 2 - PCV) 11/19/1998 Cervical Cancer Screening Pa p with HPV Testing (Age 30 to 64) Every 5 Years 11/19/2009 Cervical Cancer Screening with HPV 11/19/2009 Mammogram Screening 2019 COVID-19 Vaccine (2023-2 5 season) 2023 HPV Vaccines Aged Out No longer eligi ble based on patient's age to complete this topic Meningococcal B Vaccine Aged Out No l onger eligible based on patient's age to complete this topic Meningococcal Vaccine Aged Out No ami rich eligible based on patient's age to complete this topic RSV Immunizations Under 20 Months Aged Out No longer eligible based on patient's age to complete this topic Medical Devices Implanted Type Area Hand Meat Salter Device Identifier Shelf Expiration Date Model / Serial / Lot Collar Button Vent Tube Implanted:Qty : 1 on 06/23/2017 by Contreras Carbajal MD at [facility] [employer] Tube Implant Left: Ear [employer] 09/28/2025 [id number] / / [id number] Insurance [facility] Advance Directives * Full Code (Latest Code Status on File) Date Activated Date Inactivated Comments 06/23/2017 2:25 PM 06/23/2017 4:57 PM
--- OUTSIDE RECORDS SUMMARY | 2024-09-07 09:41 | XMS_ITS | Encounter Summary ---
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 Primary Care Provider [phone] Josesito Sanches DO Unavailable Encounter Details Date Type Department Care Team (Late st Contact Info) Description 08/18/2023 Lab Requisition [facility] - DermPath Lab [address] [place] [address] Leticia Lazaro MD [address] [facility] [address] [place] [address] Social History Tobacco Use Types Packs/Day Years Used Date Smoking Tobacco: Never Assessed Comments Unknown Sex and Gender Information Value Date Recorded Sex Assigned at Female 02/14/2024 6:22 PM CDT Legal Sex Female 6:28 PM PROGRAM MEDICAL DIRECTOR Gender Identity Female 02/14/2024 6:22 PM CDT Sexual Orientation Straight 02/14/2024 6: 22 PM CDT documented as of this encounter Plan of Treatment Not on file documented as of this encounter Procedures Procedure Name Priority Date/Time Associated Diagnosis Comments DERMATOPATHOLOGY Routine 08/18/2023 1:52 PM CDT documented in this encounter Results * DERMATOPATHOLOGY (08/18/2023 1:52 PM CDT) Case Report Dermatopathology Report Case: [id number] Authorizing Provider: Leticia Lazaro MD Collected: 08/18/2023 01:52 PM Ordering Location: [facility] - Received: 08/22/2023 10:26 AM DermPath Lab Pathologist: Kylah Rader MD Specimen: Skin, left scalp 1:26 PM CDT DERMATOPATHOLOGY LABORATORY Final Diagnosis Specimen A. SKIN, left scalp: BENIGN VERRUCOUS KERATOSIS, INFLAMED (L82.1) 1:26 PM CDT DERMATOPATHOLOGY LABORATORY Clinical History R/o SCC vs. SK 1:26 PM CDT DERMATOPATHOLOGY LABORATORY Gross Description Specimen A: Received is one formalin filled container labeled with the patient's name and designated left scalp. The specimen consists of a shave biopsy measuring 5x4x2 mm. Jar 0. 1:26 PM CDT DERMATOPATHOLOGY LABORATORY Microscopic Description Specimen A. SKIN, left scalp: Sections show hyperkeratosis, papillomatosis, hypergranulosis, and acanthosis. Inflammatory cells are present within the dermis. These histological findings can be seen in a verruca vulgaris or a seborrheic keratosis. 1:26 PM CDT DERMATOPATHOLOGY LABORATORY Disclaimer An external and internal positive and negative controls are appropriate for the histochemical, immunohistochemical and immunofluorescence stain(s) in this case (if any), except where stated explicitly. The performance characteristics of the stain(s) cited in this report were developed and its performance characteristic determined by the Dermatopathology Laboratory at [facility], directed by Dr. Mimi Enriquez. These tests need not be, and therefore are not, approved by the [place] Food and Drug Administration. The tests are used for clinical purposes. Billing Codes Specimen Charges Stain Charges 85400 1 1:26 PM CDT DERMATOPATHOLOGY LABORATORY Embedded Images 1:26 PM CDT DERMATOPATHOLOGY LABORATORY Pathology/Cytolo gy TISSUE SPECIMEN FROM SKIN / Unknown 08/18/2023 1:52 PM CDT 08/22/2023 10:26 AM CDT us Leticia Lazaro MD LAB - PATHOLOGY/CYTOLOGY ORD ERABLES Final Result DERMATOPATHOLOGY LABORATORY [facility] - Department of Dermatology [facility] Medicine [address] [place] [address], [address] [phone] documented in this encounter Visit Diagnoses Not on filedocumented in this encounter Care Teams [employer] Power[employer] Mechanic Helper Relationship Specialty Start Date End Date Roshan Villa DO PCP - General 11/16/13 02/05/24 Patricia Ruffin APRN-LEGAL NURSE CONSULTANT [address] [place] [address] PCP - General Certified Clinical Nurse Specialist 02/06/24 Josesito Sanches DO [address] [place] [address] Manufacturer'S Service Representative Rheumatology 02/07/24 documented as of this encounter
== END 2024-09-07 09:37 | disposition home or self-care (01) ==
LOC: ANHIMG 09:37
PROVIDERS: PCP Internal Medicine; Visit Provider Nurse Practitioner Women's Health
DX: Z12.31 Encounter for screening mammogram for malignant neoplasm of breast (principal); R92.8 Other abnormal and inconclusive findings on diagnostic imaging of breast
CPT/HCPCS: 77063; 77067

== ENCOUNTER 2024-10-19 08:39 | Outpatient (CLI) | payer BC, SELFPAY ==
--- NOTE | ~2024-10-19 | MMUS_ITS ---
EXAMINATION: MM diagnostic ana LT w katty, US breast LT limited HISTORY: Left breast mass TECHNIQUE: Additional 3-D tomosynthesis images of the left breast were performed and synthetic 2-D im ages were generated. CAD analysis was submitted and interpreted. High resolution limited left breast ultrasound was performed. COMPARISON: 09/07/2024, 06/10/2023, 05/28/2022 BREAST PARENCHYMAL COMPOSITION:Not Dense. There are scattered areas of fibroglandular density. FINDINGS: MAMMOGRAPHIC FINDINGS: Spot compression views confirm a persistent upper outer left breast mass measuring approximately 1.5 cm in diameter, with probable associated focal microcalcifications, which may be pleomorphic. ULTRASOUND: At the 2:00 position left breast, 5 cm from the nipple, there is a 1.8 x 1.4 x 1.4 cm irregular hypoe choic mass. Morphologically normal lymph node present at the left axilla, prominent fatty hilum. IMPRESSION: 1.8 x 1.4 x 1.4 cm irregular hypoechoic mass at the 2:00 position left breast is highly suspicious. This correlates with new left breast mass seen mammographically with associated suspicious calcificat ions. Biopsy is recommended to establish histologic diagnosis. BI-RADS category 5, highly suggestive of malignancy. Reviewed, dictated and finalized at location . IMPRESSION: 1.8 x 1.4 x 1.4 cm irregular hypoechoic mass at the 2:00 position left breast is highly suspicious. This correlates with new left breast mass seen mammograph ically with associated suspicious calcifications. Biopsy is recommended to esta blish histologic diagnosis. BI-RADS category 5, highly suggestive of malignancy.
== END 2024-10-19 08:40 | disposition home or self-care (01) ==
PROVIDERS: PCP Obstetrics & Gynecology Gynecology; Visit Provider Obstetrics & Gynecology Gynecology
DX: R92.8 Other abnormal and inconclusive findings on diagnostic imaging of breast (principal)
CPT/HCPCS: 76642; 77061; 77065; G0279